=== PATIENT | female | born 1960 | race Two or more races ===

== ENCOUNTER 2018-04-27 17:52 | Emergency (ER) | payer OTHER ==
[~2018-04-27] VITALS: Ht 157.5 cm; Wt 99.8 kg
[2018-04-27 18:25] VITALS: BP 153/75
[2018-04-27] MEDS ORDERED: SODIUM CHLORIDE 0.9% 1,000 ML IV ONE (19:15)
[2018-04-27] MEDS ORDERED: PROMETHAZINE HCL 25 MG/ML 1ML IV ONE (19:15)
[2018-04-27] MEDS ORDERED: ONDANSETRON HCL 4 MG/2 ML VIAL IV ONE (19:15)
== END 2018-04-27 22:14 | disposition home or self-care (01) ==
LOC: ER 18:05
DX: R42 Dizziness and giddiness (principal)
CPT/HCPCS: 93005 ×2; 96360 ×2; 96361 ×2; 99283; J7030